=== PATIENT | male | born 1970 | race Caucasian/White ===

== ENCOUNTER 2025-03-20 09:45 | Emergency (ER) | payer OTHER, SELFPAY ==
[2025-03-20 09:48] VITALS: BP 149/98
--- NOTE | 2025-03-20 10:27 | ED.GENMED ---
History of Present Illness
General
Chief Complaint: Skin Surface Trauma
Source: patient
Exam Limitations: none
Time Seen by Provider: 03/20/25 09:56
Nursing documentation reviewed up to this point in time: agreed with
History of Present Illness
History of Present Illness:
pt is a 54 y/o M R hand dominant
L 4th finger avulsion skin injury when he was using pruning pankaj today
pt has bleeding/oozing that is controlled with pressure, but it won't stop bleeding
no blood thinners
tetanus known
pain is mild
Past History
Past History
ED Past Medical History: None
ED Past Surgical History: None and Brain
Social History
Tobacco: Non-smoker
Alcohol: None
Drug: None
Personal:
Living: with family
Employment: Employed
Family History
Family History: Other
Review of Systems
Review of Systems
Allergies reviewed?: Yes
All Other Systems: Not applicable
Phy Exam
Physical Exam
Physical Exam:
GENERAL: Alert , in no apparent distress, comfortable at rest
HEAD: NCAT
CV: cap refill intact
NEUROLOGICAL: Alert and oriented, no focal neuro deficits, , 5/5 strength, sensation intact, ambulation slight limp right leg
SKIN: Warm and dry, avulsion fingertip approx 1x0.25 cm irregular
oozing
MUSCULOSKELETAL: L index finger full ROM
avulsion skin
no nail involvement
distal L index finger
PSYCH: Normal and appropriate interaction.
Course
Orders/Labs/Results
Orders:
Orders
03/20/25 10:26
Tetanus/Diphth/Acelpertussis [Adacel] 0.5 ml IM .ONCE ONE
Vital Signs
Initial and Last Documented VS:
Initial Vital Signs
Temp Pulse Resp BP Pulse Ox
37.0 C 87 16 149/98 98
03/20/25 09:48 03/20/25 09:48 03/20/25 09:48 03/20/25 09:48 03/20/25 09:48
Last Documented Vital Signs
Temp Pulse Resp BP Pulse Ox
37.0 C 87 16 149/98 98
03/20/25 09:48 03/20/25 09:48 03/20/25 09:48 03/20/25 09:48 03/20/25 09:48
MDM/Problems Addressed
Differential Diagnosis Includes:
skin avulsion, laceration
MDM/Problems Addressed:
54 y/o M
with h/o R hand dominance
here with L index finger avulsion skin from pruning pankaj
oozing blood
cap refillintact
wound irrigated with saline
gel foam dressing applied
observed 15 minutes no bleeding
tetanus booster
d/c home
*Critical Care Note
Total Time (30-74mins, 75-104mins- exclusive of procedures): Not Applicable
ED Attending Note
-
Portions of this chart may have been created with voice recognition software.� Occasional wrong word or��sound alike� substitutions may have occurred due to the inherent limitations of voice recognition software.
Discharge Plan
Departure
Patient Disposition: Home (Routine Discharge)
Date of Disposition: 03/20/25
Time of Disposition: 10:38
Patient with high blood pressure during this ER visit?: Yes
Condition: Fair
Covid-19: Not Applicable
Discharge Problem:
Cut of skin of left index finger, Avulsion of skin
Instructions: Wound Care (DC)
Prescriptions:
No Action
atorvastatin 20 MG tablet
20 mg PO Daily
meclizine 25 MG tablet
25 mg PO Q6HPRN PRN (Reason: dizziness)
esomeprazole magnesium [Nexium] 40 MG capsule,delayed release(DR/EC)
40 mg PO Daily
diazepam 10 MG tablet
10 mg PO PRN PRN (Reason: dizziness)
fluticasone propionate 1 SPRAY spray,suspension
1 spray intranasal Daily
Vitamin B Complex
1 tab PO Daily
Vitamin D3 (cholecalciferol): 5,000 UNITS
1 tab PO Daily
methylprednisolone [Medrol (Deshaun)] 4 MG tablets,dose pack
4 tab PO . DIRECT Qty: 1 0RF
ondansetron 4 MG tablet,disintegrating
4 mg PO TIDPRN PRN (Reason: NAUSEA) Qty: 20 0RF
Referrals:
Teo Georges MD [Family Provider] -
Activity Restrictions/Additional Instructions:
Keep the dressing in place for 48 hours if you can. After that you can wash your hand normally. The Gelfoam will eventually dissolve and fall off. You should scab underneath there. You were given a tetanus shot today. Return for any bleeding,
infection, concerns
Interventions
Interventions:
*Risk Screen - Suicide Last Done: 03/20/25 09:48
*General Assessment Last Done: 03/20/25 09:51
*Neglect/Abuse Screening Last Done: 03/20/25 09:48
*ED COVID-19 Vaccine History Last Done: 03/20/25 09:51
ED-Skin Assessment Last Done: 03/20/25 09:51
Discharge Date and Time
Print Language: GEORGIAN
[2025-03-20] MEDS: ADACEL 0.5 ML IM (10:33)
== END 2025-03-20 10:57 | disposition home or self-care (01) ==
LOC: EMR 09:45
PROVIDERS: EMERGENCY PHYSICIAN Emergency Medicine; FAMILY PHYSICIAN Internal Medicine
DX: S61.201A Unspecified open wound of left index finger without damage to nail, initial encounter (principal); W27.8XXA Contact with other nonpowered hand tool, initial encounter; Z23 Encounter for immunization
CPT/HCPCS: 90471; 99282; 90715

== ENCOUNTER 2025-06-24 06:28 | Day surgery (SDC) | payer OTHER, SELFPAY | END 2025-06-24 08:43 | disposition home or self-care (01) | LOC: GI 06:28 | PROVIDERS: ATTENDING PHYSICIAN Internal Medicine Gastroenterology | DX: Z12.11 Encounter for screening for malignant neoplasm of colon (principal); D12.0 Benign neoplasm of cecum; D12.5 Benign neoplasm of sigmoid colon; K63.5 Polyp of colon; R19.5 Other fecal abnormalities | CPT/HCPCS: 45385; 45380; 88305 ==